=== PATIENT | female | born 2000 | race African-American/Black ===

== ENCOUNTER 2021-02-19 21:59 | Emergency (ER) | payer OTHER, SELFPAY ==
[2021-02-19 22:43] VITALS: BP 111/54; PULSE 67; RESP 16; TEMP 36.8; O2SAT 100
--- NOTE | 2021-02-19 23:54 | PC.NURSE ---
Patient leaving-states that she will go to Urgent care in morning to have her nose checked
== END 2021-02-19 23:40 | disposition left against medical advice (07) ==
LOC: ANHED 02-20 00:07
DX: Z53.21 Procedure and treatment not carried out due to patient leaving prior to being seen by health care provider (principal)
CPT/HCPCS: 99199

== ENCOUNTER 2021-06-22 20:38 | Emergency (ER) | payer OTHER, SELFPAY ==
[2021-06-22 21:02] VITALS: BP 133/81; PULSE 65; RESP 18; TEMP 36.8; O2SAT 100
--- NOTE | 2021-06-22 22:04 | ED.GENADULT ---
HPI - General Adult General Chief complaint: Wound/Laceration Stated complaint: left pinky lac Time Seen by Provider: 06/22/21 21:04 Source: patient Mode of arrival: ambulatory Limitations: no limitations History of Present Illness HPI narrative: Patient presents with chief complaint of laceration to the volar aspect of her left pinky finger she sustained prior to arrival while using a knife to cut a french sausage. She states she is up-to-date on tetanus. Patient reports bleeding from the area denies any other injuries or concerns. Related Data Home Medications Medication Instructions Recorded Confirmed No Home Medications 06/22/21 06/22/21 Allergies Allergy/AdvReac Type Severity Reaction Status Date / Time No Known Allergies Allergy Verified 06/22/21 21:06 Review of Systems Review of Systems: CONSTITUTIONAL: Denies fever, chills, or sweats. EYES: Denies visual changes, redness, or discharge. ENT: Denies rhinorrhea, congestion, sore throat, or otalgia. CARDIOVASCULAR: Denies chest pain, palpitations, or edema. RESPIRATORY: Denies cough or dyspnea. GASTROINTESTINAL: Denies abdominal pain, nausea, vomiting, or diarrhea. GENITOURINARY: Denies dysuria or hematuria. SKIN: Reports laceration denies rash or itching. MUSCULOSKELETAL: Denies back pain, joint pain, or myalgia. NEUROLOGIC: Denies headache, numbness, dizziness, or weakness. PSYCHIATRIC: Denies anxiety or depression. Exam Narrative: GENERAL: Well-appearing, well-nourished, and in no acute distress. HEAD: Normocephalic, atraumatic. EYES: PERRLA and EOMI. CHEST: Clear to auscultation. No respiratory distress. No wheezes rales or rhonchi HEART: Regular rate and rhythm. EXTREMITIES: Normal range of motion. No edema. SKIN: Approximately 2 cm laceration to the volar aspect of left pinky finger. There is some gaping of center. Bleeding is minimal. No signs of foreign body warm, dry, no rash. NEURO: No focal deficits. Alert and oriented x3. PSYCH: Normal mood and affect. Course Vital Signs Vital signs: Vital Signs Temperature 98.3 F 06/22/21 21:02 Pulse Rate 65 06/22/21 21:02 Respiratory Rate 18 06/22/21 21:02 Blood Pressure 133/81 06/22/21 21:02 Pulse Oximetry 100 06/22/21 21:02 Temperature 98.3 F 06/22/21 21:02 Pulse Rate 65 06/22/21 21:02 Respiratory Rate 18 06/22/21 21:02 Blood Pressure 133/81 06/22/21 21:02 Pulse Oximetry 100 06/22/21 21:02 Procedures Laceration Laceration 1: Site: hand Side (If applicable): left Size (cm): 2 Description: linear Depth: simple, single layer Local Anesthetic: lidocaine 1% Amount of anesthesia used (mL): 0.5 Pre-repair: irrigated extensively ====== Skin Level ====== Skin layer closed with: nylon Size (cm): 5-0 Number of sutures: 3 Technique: simple, interrupted ====== Subcutaneous Layer ====== ====== Muscle Layer ====== ====== Tendon Layer ====== Medical Decision Making MDM Narrative Medical decision making narrative: Laceration approximated well. No complication of procedure. Patient is on wound care and suture removal instructions. Patient denies any other needs or concerns. She is up-to-date on Tdap. Instructed to return to emergency room if she develops any emergent symptoms. Instructed to watch for signs of infection present with her primary care if they present. Vital Signs Vital Signs: Vital Signs Temperature 98.3 F 06/22/21 21:02 Pulse Rate 65 06/22/21 21:02 Respiratory Rate 18 06/22/21 21:02 Blood Pressure 133/81 06/22/21 21:02 Pulse Oximetry 100 06/22/21 21:02 Temperature 98.3 F 06/22/21 21:02 Pulse Rate 65 06/22/21 21:02 Respiratory Rate 18 06/22/21 21:02 Blood Pressure 133/81 06/22/21 21:02 Pulse Oximetry 100 06/22/21 21:02 Discharge Plan Discharge Clinical Impression: Laceration Patient Disposition:
== END 2021-06-22 22:11 | disposition home or self-care (01) ==
PROVIDERS: Emergency Provider Emergency Medicine; PCP Family Medicine
DX: S61.217A Laceration without foreign body of left little finger without damage to nail, initial encounter (principal); W26.0XXA Contact with knife, initial encounter; Y93.G1 Activity, food preparation and clean up
CPT/HCPCS: 12001; 99282

== ENCOUNTER 2021-08-04 23:26 | Emergency (ER) | payer OTHER, SELFPAY ==
--- NOTE | ~2021-08-04 | CT_ITS ---
EXAMINATION: CT brain wo con DATE: 08/04/2021 23:52 INDICATION: Headache. Head injury. TECHNIQUE: Computed tomography (CT) of the head was performed without intravenous contrast. The mA wa s adjusted according to patient size. Iterative reconstruction technique was employed. The dose-lengt h product was 605.33 mGy-cm. COMPARISON: None FINDINGS: There is no intracranial hemorrhage, acute infarction, or abnormal intracranial mass lesion . The ventricles are normal in size. There is mild mucosal thickening in the paranasal sinuses. The o rbits are normal. The mastoid air cells are normal. IMPRESSION: 1. Normal brain. Reviewed, dictated and finalized at location A. IMPRESSION: 1. Normal brain.
[2021-08-04 23:31] VITALS: BP 114/64; PULSE 64; RESP 15; TEMP 36.4; O2SAT 99
--- NOTE | 2021-08-05 00:24 | ED.HA ---
HPI - Headache General Chief Complaint: Headache Stated Complaint: headache Time Seen by Provider: 08/05/21 00:14 Source: RN notes reviewed History of Present Illness HPI Narrative: Patient presents emergency department from home for headache. Patient states yesterday afternoon she is gone about and struck her front forehead on her bed she states that she has had a frontal headache since that time. She denies any loss of consciousness she denies any vision changes, nausea or vomiting or any other symptoms patient has been taking ibuprofen at home for the pain with last dose ibuprofen at 7 PM she states she did drive herself to the emergency department. Related Data Allergies Allergy/AdvReac Type Severity Reaction Status Date / Time No Known Allergies Allergy Verified 06/22/21 21:06 Review of Systems Review of Systems: Gen.: Denies fevers or chills Eyes: Denies eye pain or visual change ENT: Denies congestion Respiratory: Denies shortness of breath CV: Denies chest pain GI: Denies abdominal pain nausea, emesis denies chance of Musculoskeletal: Denies back pain or muscle pain Neuro: See HPI Skin: Denies rash Except as documented, all other systems reviewed and negative [facility] Past Medical History Medical History (Updated 08/05/21 @ 00:32 by Phi Anderson DO) Patient denies significant medical history Social History Social History (Updated 08/05/21 @ 00:26 by Phi Anderson DO) Smoking status: Never smoker Exam Narrative: APPEARANCE: No acute distress, nontoxic, resting in bed EYES: EOMI PERRL HEENT: Normocephalic, atraumatic, TMs clear bilaterally nares patent no facial tenderness Neck supple, no midline tenderness palpation full range of motion without pain RESPIRATORY: No respiratory distress MUSCULOSKELETAl: Moves all extremities. No clubbing, cyanosis or edema. NEURO: Awake and alert x 4. Following commands, speech normal, no focal deficits SKIN:: Warm, dry. No rashes lesions or abrasions PSYCHIATRIC: Normal affect/mood, Course Course Emergency Course: Patient states she did herself to the emergency department discussed medications and will give small amount of pain medication for at home Vital Signs Vital signs: Vital Signs Temperature 97.6 F 08/04/21 23:31 Pulse Rate 64 08/04/21 23:31 Respiratory Rate 15 08/04/21 23:31 Blood Pressure 114/64 08/04/21 23:31 Pulse Oximetry 99 08/04/21 23:31 Temperature 97.6 F 08/04/21 23:31 Pulse Rate 65 08/05/21 00:32 Respiratory Rate 18 08/05/21 00:32 Blood Pressure 116/74 08/05/21 00:32 Pulse Oximetry 100 08/05/21 00:32 MDM - Headache Imaging Data Radiologist's impression: ITS Impressions Head CT 08/04/21 23:53 IMPRESSION: 1. Normal brain. Discharge Plan Discharge Clinical Impression: Headache, Contusion of head Patient Disposition: Home, Self-Care Condition: Stable Instructions: Antibiotic Form, Head Injury (ED) Additional Instructions: Return for worsening headache fevers vomiting or any other symptoms of concern Prescriptions: New hydrocodone-acetaminophen 5-325 mg tablet 4 tablet PO Q4H PRN (Reason: pain) Qty: 4 RF: 0 ibuprofen [IBU] 600 mg tablet 600 mg PO Q6H PRN (Reason: pain) Qty: 20 RF: 0 Follow-up/Referrals: Maricarmen,Javid Deras MD [Primary Care Provider] - 2 Days Time of Disposition: 00:33
[2021-08-05] MEDS: ACETAMINOPHEN 500 MG TABLET 1000 MG PO (00:30)
[2021-08-05 00:32] VITALS: BP 116/74; PULSE 65; RESP 18; O2SAT 100
== END 2021-08-05 01:54 | disposition home or self-care (01) ==
LOC: ANHED 08-05 00:45
PROVIDERS: Emergency Provider Emergency Medicine; PCP Family Medicine
DX: R51.9 Headache, unspecified (principal); S00.93XA Contusion of unspecified part of head, initial encounter; W22.03XA Walked into furniture, initial encounter
CPT/HCPCS: 70450; 99284; A9270